=== PATIENT | male | born 1990 | race Caucasian/White ===

== ENCOUNTER 2023-04-05 06:09 | Emergency (ER) | payer BC, SELFPAY ==
[2023-04-05] VITALS (8 sets, daily range): BP systolic 95–125; BP diastolic 59–78; PULSE 55–69; RESP 16; TEMP 35.8–36.7; O2SAT 98–100; BMI 20.7
--- NOTE | 2023-04-05 06:18 | ED.GENADULT ---
HPI - General Adult <DO Fermin Ortiz Last Filed: 04/08/23 20:30> General Chief complaint: Abdominal Pain Stated complaint: ABD pain Time Seen by Provider: 04/05/23 06:17 History of Present Illness HPI narrative: 32-year-old male presents with a chief complaint of epigastric and left upper quadrant pain since late in the day on . He admits to some nausea but no vomiting. He denies obvious provocation, palliation or radiation of his discomfort. He is had it once before and states that he was told it was likely gastritis or reflux. He denies fever or chills. He is on vacation and admits that he has been consuming a bit more alcohol than normal. He denies any constipation or diarrhea and no urinary complaints such as dysuria, frequency or urgency. Related Data Previous Rx's Medication Instructions Recorded dicyclomine 20 mg tablet 20 mg PO TID #30 tabs 04/05/23 famotidine 20 mg tablet (Acid-Pep) 20 mg PO BID #30 tabs 04/05/23 sucralfate 1 gram tablet (Carafate) 1 g PO TID #30 tabs 04/05/23 Allergies Allergy/AdvReac Type Severity Reaction Status Date / Time No Known Drug Allergies Allergy Verified 04/05/23 06:28 Review of Systems <DO Fermin Ortiz Last Filed: 04/08/23 20:30> Review of Systems Narrative: GENERAL: Denies chills, fatigue, malaise, fever, sweats. HEENT: Denies sinus pain, ear pain, sore throat, difficulty swallowing, dizziness. RESPIRATORY: Denies dyspnea, cough, wheezing, hemoptysis, sputum. CARDIOVASCULAR: Denies chest pain, palpitations, orthopnea, edema, GASTROINTESTINAL: See HPI : Denies dysuria, frequency, incontinence, hematuria, urinary retention. MUSCULOSKELETAL: denies weakness, joint pain, or bony pain SKIN: Denies rash, skin lesions, or other NEUROLOGIC: Denies weakness, headache, numbness, change in speech, confusion, seizures, incoordination. PSYCHIATRIC: No concerning psychosocial issues. 12 point review of systems is negative except for those stated above Patient History <DO Fermin Ortiz Last Filed: 04/08/23 20:30> Social History Smoking Status: Never smoker Exam <Misael Hdez DO - Last Filed: 04/08/23 20:30> Narrative Exam Narrative: GENERAL: [32] year old patient appears stated age. Well-developed patient, in mild distress. HEAD: Atraumatic. Normocephalic. EYES: Pupils equal round and reactive. Extraocular motions intact. No scleral icterus. No injection or drainage. ENT: Nose without bleeding, purulent drainage. Throat without erythema, tonsillar hypertrophy or exudate. Airway patent. NECK: Trachea midline. Non tender CARDIOVASCULAR: Regular rate and rhythm without murmurs, gallops, or rubs. RESPIRATORY: Clear to auscultation. Breath sounds equal bilaterally. No wheezes, rales, or rhonchi. GASTROINTESTINAL: Abdomen soft, tender in the epigastrium, nondistended. EXTREMITIES: No edema or joint tenderness. BACK: Nontender without deformity or crepitance. No flank tenderness. NEURO: AOx3. SKIN: No rash or erythema of visible areas Initial Vital Signs Initial Vital Signs: Vital Signs Temperature 96.4 F L 04/05/23 06:16 Pulse Rate 69 04/05/23 06:16 Respiratory Rate 16 04/05/23 06:16 Blood Pressure 125/78 04/05/23 06:16 Pulse Oximetry 98 04/05/23 06:16 Oxygen Delivery Method Room Air 04/05/23 06:16 <Maisha Rosario MD - Last Filed: 04/05/23 08:18> Initial Vital Signs Initial Vital Signs: Vital Signs Temperature 96.4 F L 04/05/23 06:16 Pulse Rate 69 04/05/23 06:16 Respiratory Rate 16 04/05/23 06:16 Blood Pressure 125/78 04/05/23 06:16 Pulse Oximetry 98 04/05/23 06:16 Oxygen Delivery Method Room Air 04/05/23 06:16 Course <Misael Hdez DO - Last Filed: 04/08/23 20:30> Orders Ordered: Discontinued Medications Sodium Chloride (Normal Saline 0.9%) 1,000 mls @ 1,000 mls/hr IV BOLUS ONE Stop: 04/05/23 07:29 Last Infusion: 04/05/23 07:40 Dose: 0 mls/hr Documented By: Admin: 04/05/23 06:39 Dose: 1,000 mls/hr Documented By: HERSON Ketorolac Tromethamine (Ketorolac 30 Mg/Ml Vial) 15 mg IV NOW ONE Stop: 04/05/23 06:31 Last Admin: 04/05/23 06:47 Dose: 15 mg Documented By: HERSON Ondansetron HCl (Ondansetron 4 Mg Odt) 4 mg PO NOW PRN PRN Reason: Nausea And Vomiting Ondansetron HCl (Ondansetron 4 Mg/2 Ml Inj) 4 mg IV NOW PRN PRN Reason: Nausea And Vomiting Last Admin: 04/05/23 06:47 Dose: 4 mg Documented By: HERSON Pantoprazole Sodium (Pantoprazole 40 Mg Vial) 40 mg IV NOW ONE Stop: 04/05/23 06:31 Last Admin: 04/05/23 06:47 Dose: 40 mg Documented By: HERSON Vital Signs Vital signs: Vital Signs - 8 hr 04/05/23 06:16 04/05/23 06:47 04/05/23 06:48 Temperature 96.4 F L Pulse Rate 69 68 Respiratory Rate 16 Blood Pressure 125/78 105/64 Pulse Oximetry 98 98 Oxygen Delivery Method Room Air 04/05/23 06:48 04/05/23 07:00 04/05/23 07:00 Temperature Pulse Rate 63 59 L Respiratory Rate Blood Pressure 101/62 Pulse Oximetry 98 99 Oxygen Delivery Method 04/05/23 07:30 04/05/23 07:30 04/05/23 07:38 Temperature Pulse Rate 59 L Respiratory Rate Blood Pressure 103/67 95/59 L Pulse Oximetry 100 Oxygen Delivery Method 04/05/23 07:38 04/05/23 08:00 04/05/23 08:00 Temperature Pulse Rate 63 55 L Respiratory Rate Blood Pressure 106/64 Pulse Oximetry 100 100 Oxygen Delivery Method <Maisha Rosario MD - Last Filed: 04/05/23 08:18> Orders Ordered: Discontinued Medications Sodium Chloride (Normal Saline 0.9%) 1,000 mls @ 1,000 mls/hr IV BOLUS ONE Stop: 04/05/23 07:29 Last Infusion: 04/05/23 07:40 Dose: 0 mls/hr Documented By: Admin: 04/05/23 06:39 Dose: 1,000 mls/hr Documented By: HERSON Ketorolac Tromethamine (Ketorolac 30 Mg/Ml Vial) 15 mg IV NOW ONE Stop: 04/05/23 06:31 Last Admin: 04/05/23 06:47 Dose: 15 mg Documented By: HERSON Ondansetron HCl (Ondansetron 4 Mg Odt) 4 mg PO NOW PRN PRN Reason: Nausea And Vomiting Ondansetron HCl (Ondansetron 4 Mg/2 Ml Inj) 4 mg IV NOW PRN PRN Reason: Nausea And Vomiting Last Admin: 04/05/23 06:47 Dose: 4 mg Documented By: HERSON Pantoprazole Sodium (Pantoprazole 40 Mg Vial) 40 mg IV NOW ONE Stop: 04/05/23 06:31 Last Admin: 04/05/23 06:47 Dose: 40 mg Documented By: HERSON Vital Signs Vital signs: Vital Signs - 8 hr 04/05/23 06:16 04/05/23 06:47 04/05/23 06:48 Temperature 96.4 F L Pulse Rate 69 68 Respiratory Rate 16 Blood Pressure 125/78 105/64 Pulse Oximetry 98 98 Oxygen Delivery Method Room Air 04/05/23 06:48 04/05/23 07:00 04/05/23 07:00 Temperature Pulse Rate 63 59 L Respiratory Rate Blood Pressure 101/62 Pulse Oximetry 98 99 Oxygen Delivery Method 04/05/23 07:30 04/05/23 07:30 04/05/23 07:38 Temperature Pulse Rate 59 L Respiratory Rate Blood Pressure 103/67 95/59 L Pulse Oximetry 100 Oxygen Delivery Method 04/05/23 07:38 04/05/23 08:00 04/05/23 08:00 Temperature Pulse Rate 63 55 L Respiratory Rate Blood Pressure 106/64 Pulse Oximetry 100 100 Oxygen Delivery Method Medical Decision Making <Misael Hdez, - Last Filed: 04/08/23 20:30> Lab Data 04/05/23 06:20 04/05/23 06:20 Labs: Lab Results 04/05/23 04/05/23 04/05/23 Range/Units 06:20 06:20 06:20 WBC 5.2 (4.5-11.0) X10^3/uL RBC 4.91 (4.5-5.9) X10^6/uL Hgb 15.0 (13.5-17.5) g/dL Hct 42.7 (41-53) % MCV 87.0 (80-100) fL MCH 30.6 (26-34) PG MCHC 35.1 (30-36) % RDW 13.5 (11.6-14.8) % Plt Count 204 (150-400) X10^3/uL Neut % (Auto) 68.4 (50-75) % Lymph % (Auto) 16.7 L (25-40) % [place] % (Auto) 10.0 (3-14) % Eos % (Auto) 4.0 (2-4) % Baso % (Auto) 0.9 (0-2) % Neut # (Auto) 3600 (3738-6221) /uL Lymph # (Auto) 900 L (5505-0796) /uL [place] # (Auto) 500 (0-900) /uL Eos # (Auto) 200 (0-450) /uL Baso # (Auto) 0 (0-100) /uL Sodium 138 (137-145) mmol/L Potassium 4.1 (3.4-5.1) mmol/L Chloride 104 (98-107) mmol/L Carbon Dioxide 27 (22-32) mmol/L BUN 10 (9-20) mg/dL Creatinine 0.72 (0.66-1.25) mg/dL Estimated GFR > 60 (>60) mL/min BUN/Creatinine Ratio 13.9 (6-22) Glucose 98 (70-100) mg/dL Calcium 9.2 (8.4-10.2) mg/dL Total Bilirubin 1.2 (0.2-1.3) mg/dL AST 22 (17-59) IU/L ALT 17 (<50) IU/L Alkaline Phosphatase 36 L (38-126) U/L Total Protein 7.1 (6.3-8.2) g/dL Albumin 4.1 (3.5-5.0) g/dL Globulin 3.0 (1.7-4.1) g/dL Albumin/Globulin Ratio 1.4 (1.0-2.8) Lipase 65 (23-300) U/L Urine RBC 0-1/hpf (0-5/HPF) Urine WBC 0-1/hpf (0-5/HPF) Ur Squamous Epith Cells 0-1 /hpf (0-5/HPF) Urine Bacteria Occasional (0-1) (None) Urine Dip Bedside Urine Glucose Negative Bedside Urine Bilirubin - Negative Bedside Urine Ketone - Negative Urine Specific [place] 1.010 Bedside Urine Occult Blood - Negative Bedside Urine pH 6 Bedside Urine Protein - Negative Bedside Urine Urobilinogen - Negative Bedside Urine Nitrite - Negative Bedside Urine Leukocytes +/- 15 Esterase Point of care testing: Urine Dip Bedside Urine Glucose Negative Bedside Urine Bilirubin - Negative Bedside Urine Ketone - Negative Urine Specific [place] 1.010 Bedside Urine Occult Blood - Negative Bedside Urine pH 6 Bedside Urine Protein - Negative Bedside Urine Urobilinogen - Negative Bedside Urine Nitrite - Negative Bedside Urine Leukocytes +/- 15 Esterase <Maisha Rosario MD - Last Filed: 04/05/23 08:18> Lab Data Labs: Lab Results 04/05/23 04/05/23 04/05/23 Range/Units 06:20 06:20 06:20 WBC 5.2 (4.5-11.0) X10^3/uL RBC 4.91 (4.5-5.9) X10^6/uL Hgb 15.0 (13.5-17.5) g/dL Hct 42.7 (41-53) % MCV 87.0 (80-100) fL MCH 30.6 (26-34) PG MCHC 35.1 (30-36) % RDW 13.5 (11.6-14.8) % Plt Count 204 (150-400) X10^3/uL Neut % (Auto) 68.4 (50-75) % Lymph % (Auto) 16.7 L (25-40) % [place] % (Auto) 10.0 (3-14) % Eos % (Auto) 4.0 (2-4) % Baso % (Auto) 0.9 (0-2) % Neut # (Auto) 3600 (9660-6271) /uL Lymph # (Auto) 900 L (3544-1509) /uL [place] # (Auto) 500 (0-900) /uL Eos # (Auto) 200 (0-450) /uL Baso # (Auto) 0 (0-100) /uL Sodium 138 (137-145) mmol/L Potassium 4.1 (3.4-5.1) mmol/L Chloride 104 (98-107) mmol/L Carbon Dioxide 27 (22-32) mmol/L BUN 10 (9-20) mg/dL Creatinine 0.72 (0.66-1.25) mg/dL Estimated GFR > 60 (>60) mL/min BUN/Creatinine Ratio 13.9 (6-22) Glucose 98 (70-100) mg/dL Calcium 9.2 (8.4-10.2) mg/dL Total Bilirubin 1.2 (0.2-1.3) mg/dL AST 22 (17-59) IU/L ALT 17 (<50) IU/L Alkaline Phosphatase 36 L (38-126) U/L Total Protein 7.1 (6.3-8.2) g/dL Albumin 4.1 (3.5-5.0) g/dL Globulin 3.0 (1.7-4.1) g/dL Albumin/Globulin Ratio 1.4 (1.0-2.8) Lipase 65 (23-300) U/L Urine RBC 0-1/hpf (0-5/HPF) Urine WBC 0-1/hpf (0-5/HPF) Ur Squamous Epith Cells 0-1 /hpf (0-5/HPF) Urine Bacteria Occasional (0-1) (None) Urine Dip Bedside Urine Glucose Negative Bedside Urine Bilirubin - Negative Bedside Urine Ketone - Negative Urine Specific [place] 1.010 Bedside Urine Occult Blood - Negative Bedside Urine pH 6 Bedside Urine Protein - Negative Bedside Urine Urobilinogen - Negative Bedside Urine Nitrite - Negative Bedside Urine Leukocytes +/- 15 Esterase Point of care testing: Urine Dip Bedside Urine Glucose Negative Bedside Urine Bilirubin - Negative Bedside Urine Ketone - Negative Urine Specific [place] 1.010 Bedside Urine Occult Blood - Negative Bedside Urine pH 6 Bedside Urine Protein - Negative Bedside Urine Urobilinogen - Negative Bedside Urine Nitrite - Negative Bedside Urine Leukocytes +/- 15 Esterase MDM Narrative Medical decision making narrative: Laboratory work is reviewed, unremarkable. Ultrasound shows liver abnormality that may possibly be a hemangioma, less likely malignancy. 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 He will follow up with primary care as needed. Discharge Plan Departure Patient Disposition: Home Clinical Impression: Abdominal pain Instructions: DI for Abdominal Pain-Adult Prescriptions: New famotidine [Acid-Pep] 20 mg tablet 20 mg PO BID Qty: 30 0RF dicyclomine 20 mg tablet 20 mg PO TID Qty: 30 0RF sucralfate [Carafate] 1 gram tablet 1 g PO TID Qty: 30 0RF Stand Alone Forms: Patient Portal/API
[2023-04-05 06:27] LABS: Add Manual Diff / Slide Review NO; Basophils Absolute Auto 0 /uL (0-100); Basophils Percent Auto 0.9 % (0-2); Eosinophils Absolute Auto 200 /uL (0-450); Hematocrit 42.7 % (41-53); Lymphocytes Absolute Auto 900 /uL (1100-4500); Lymphocytes Percent Auto 16.7 % (25-40); Mean Corpuscular HGB Conc 35.1 % (30-36); Mean Corpuscular Hemoglobin 30.6 PG (26-34); Monocytes Absolute Auto 500 /uL (0-900); Neutrophils Absolute Auto 3600 /uL (1500-7000); Neutrophils Percent Auto 68.4 % (50-75); Platelet Count 204 X10^3/uL (150-400); Red Blood Cell Count 4.91 X10^6/uL (4.5-5.9); Red Cell Distribution Width 13.5 % (11.6-14.8); White Blood Cell Count 5.2 X10^3/uL (4.5-11.0)
--- NOTE | 2023-04-05 06:30 | DI.US.S_ITS ---
PROCEDURE: US ABDOMEN LIMITED INDICATIONS: EPIGASTRIC PAIN TECHNIQUE: Real-time focused scanning was performed of the abdomen, with image documentation. COMPARISON: None. FINDINGS: Heterogeneously hyperechoic mass in the anterior left hepatic lobe measures 1.8 x 1.2 x 2.2 cm. Additional 0.7 cm hyperechoic mass is seen in the right inferior liver. Liver is normal in size and overall echogenicity. Trace gallbladder sludge without gallstones or gallbladder wall thickening. There is no pericholecystic fluid. Sonographic Miranda sign is negative. No intrahepatic or extrahepatic biliary ductal dilatation. Common bile duct measures 3.2 mm in diameter. The visualized portions of the pancreas are unremarkable. No free fluid in the right upper quadrant. IMPRESSION: 1. No source of epigastric pain identified sonographically. Trace gallbladder sludge without cholelithiasis or signs of acute cholecystitis. 2. Nonspecific hyperechoic lesions in the liver measuring 2.2 and 0.7 cm. Differential considerations include hemangioma, adenoma, FNH, or less likely malignancy. Recommend follow-up liver protocol MRI or CT for further characterization versus six-month follow-up ultrasound to evaluate for change in size. Approved by: Isidro Negro M.D. on 04/05/2023 at 7:53
[2023-04-05] MEDS: SODIUM CHLORIDE 0.9% 1,000 ML 1000 ML IV (06:39)
[2023-04-05 06:40] LABS: Alanine Aminotransferase 17 IU/L (<50); Albumin 4.1 g/dL (3.5-5.0); Albumin Globulin Ratio 1.4 (1.0-2.8); Alkaline Phosphatase 36 U/L (38-126); Aspartate Aminotransferase 22 IU/L (17-59); BUN Creatinine Ratio 13.9 (6-22); Bilirubin Total 1.2 mg/dL (0.2-1.3); Blood Urea Nitrogen 10 mg/dL (9-20); Calcium 9.2 mg/dL (8.4-10.2); Carbon Dioxide 27 mmol/L (22-32); Chloride 104 mmol/L (98-107); Estimated Glomerular Filt Rate > 60 mL/min (>60); Glucose 98 mg/dL (70-100); HEMOLYSIS 17 (0-50); Lipase 65 U/L (23-300); Potassium 4.1 mmol/L (3.4-5.1); Sodium 138 mmol/L (137-145); Total Protein 7.1 g/dL (6.3-8.2)
[2023-04-05] MEDS: ONDANSETRON 4 MG/2 ML INJ IV (06:47)
[2023-04-05] MEDS: PANTOPRAZOLE 40 MG VIAL IV (06:47)
[2023-04-05] MEDS: KETOROLAC 30 MG/ML VIAL 15 MG IV (06:47)
[2023-04-05 06:58] LABS: Bacteria Urine Occasional (0-1); RBC Urine 0-1/HPF (0-5/HPF); Squamous Epithelial Cell Urine 0-1 /HPF (0-5/HPF); WBC Urine 0-1/HPF (0-5/HPF)
== END 2023-04-05 08:27 | disposition home or self-care (01) ==
PROVIDERS: Emergency Provider Emergency Medicine
DX: R10.13 Epigastric pain (principal)
CPT/HCPCS: 36415; 76705; 80053; 81003; 81015; 83690; 85025; 87086; 96361; 96374; 96375; 99284; C9113; J1885; J2405